=== PATIENT | male | born 1945 | race Caucasian/White ===

== ENCOUNTER 2023-07-16 06:50 | Observation (INO) ==
[~2023-07-16 06:50] MED LIST: Naloxone 0.4 mg VIAL 0.4 mg/ml 1 ml VIAL IV PRN; Ondansetron 4 mg VIAL 2 MG/ML 2 ml VIAL IV PRN; fentaNYL 100 mcg/2 ml 50 MCG/ML VIAL IV PRN
[2023-07-16] MEDS ORDERED: cefTRIAXone 2 gm/50 mL D5W 2 GM/50 ML BAG IV ONE (07:31)
[2023-07-16 07:43] LABS: Rapid COVID-19 Molecular Undetected (Undetected)
[2023-07-16] MEDS ORDERED: Lidocaine 2% PF 5 ML VIAL ONE (08:00)
[2023-07-16] MEDS ORDERED: fentaNYL 100 mcg/2 ml 50 MCG/ML VIAL ONE (08:00)
[2023-07-16] MEDS ORDERED: Propofol 10 MG/ML 20 ML BTL ONE (08:00)
[2023-07-16] MEDS ORDERED: Phenylephrine 40 mcg/mL 10mL (400mcg) SYRINGE ONE (09:17)
[2023-07-16] MEDS ORDERED: Dexamethasone IV 4 MG/ML VIAL 1 ml VIAL ONE (09:18)
[2023-07-16] MEDS ORDERED: Ondansetron 4 mg VIAL 2 MG/ML 2 ml VIAL ONE (09:18)
[2023-07-16] MEDS ORDERED: Dexamethasone IV 4 MG/ML 5 ML VIAL (20 MG) IVPB ONE (09:31)
[2023-07-16] MEDS: NS 0.9% 1000 ml BAG 1,000 ML IV SCH (12:42)
[2023-07-16] MEDS: oxyCODONE/Acetamin 5/325 mg TAB PO PRN (16:39)
[2023-07-16] MEDS: Lidocaine 2% JELLY 6 ML Topical TOPICAL PRN (16:56)
[2023-07-16] MEDS: Buffered Lidocaine 1% SYRIN 1 ml INTRADERM ONE (19:53)
[2023-07-16] MEDS: Lactated Ringers 1000 ml BAG 1,000 ML IV SCH (19:54)
[2023-07-17] MEDS: cefTRIAXone 1 gm/50 mL D5W 1 GM/50 ML BAG IV ONE (05:57)
== END 2023-07-17 11:17 | disposition home or self-care (01) ==
LOC: OR 06:50 → SSU 06:50
PROVIDERS: ADMIT Urology; ATTEND Urology